=== PATIENT | female | born 1980 | race Caucasian/White ===

== ENCOUNTER 2017-02-04 17:10 | Emergency (ER) | payer MEDICAID ==
[~2017-02-04 17:10] MED LIST: ADVAIR; ALBUTEROL; ALBUTEROL17 GM; ALBUTEROL17 GM INH; ALLERGY10 MG PO; BACTRIM DS TABL1 TAB PO; CITRATE OF MAG300 ML PO; CLARITIN OTC; CLARITIN10 MG; COMBIVENT INH14.7 GM IH; COMPAZINE10 M PO; CRANBERRY+ SOFT1 CAP PO; CYCLOBENZAPRINE10 MG PO; DARVOCET-N 1001 TAB; DARVOCET-N 1001 TAB PO; FIBERCON625 MG; FLAGYL500 MG PO; FLEXERIL10 MG PO; FLEXERIL5 M1 PO; IBUPROFEN600 MG; IBUPROFEN800 M1 PO; IBUPROFEN800 MG PO; INDERAL10 MG; INDERAL10 MG PO; INDERAL20 MG PO; KEFLEX500 MG PO; MACROBID 100 M100 MG PO; MELOXICAM7.5 MG PO; MOBIC; MOBIC7.5 M1 PO; MOTRIN; MOTRIN600 MG PO; MOTRIN800 MG; NAPROSYN500 MG PO; NAPROXEN500 MG PO; NASONEX17 GM; NASONEX17 GM NS; NO HOME MEDS; NORCO 10/325 TA1 TAB PO; NORCO 5/325 TAB1 TAB PO; NORCO 7.5-3251 EACH PO; NORFLEX100 MG PO; OMEPRAZOLE; PHENERGAN W/CO120 ML PO; POLYTRIM EYE DR10 ML EACH EYE; PREDNISONE20 MG PO; PRILOSEC20 MG PO; PROPRANOLOL HCL PO; PYRIDIUM200 MG PO; SENNA8.6 M1 PO; SEPTRA DS TABLE1 TAB PO; STOOL SOFTENER; TRAMADOL HCL50 MG PO; ULTRAM50 MG; ULTRAM50 MG PO; VIBRAMYCIN100 MG PO; WELLBUTRIN XL150 MG; ZITHROMAX250MG Z-PAK PO; ZOFRAN ODT4 MG/UDTAB PO; ZOFRAN4 M1 PO; ZOLOFT; ZOLOFT50 MG PO
[2017-02-04] MEDS ORDERED: NO HOME MEDICATION XX (19:34)
[2017-02-04] MEDS ORDERED: BACTRIM DS TAB1 EAC2 PO (20:10)
== END 2017-02-04 20:15 ==
LOC: EDMED 17:10
PROC: 0H98XZZ Drainage of Buttock Skin, External Approach (ICD-10-PCS; principal; 2017-02-04)
DX: L02.31 Cutaneous abscess of buttock (principal); Z88.0 Allergy status to penicillin; Z88.8 Allergy status to other drugs, medicaments and biological substances